=== PATIENT | male | born 1945 | race Caucasian/White ===

== ENCOUNTER 2017-12-05 08:09 | Day surgery (SDC) | payer MEDICARE ==
[2017-12-05] VITALS (20 sets, daily range): BP systolic 88–172; BP diastolic 57–97
[~2017-12-05] VITALS: Ht 170.2 cm; Wt 81.9 kg
[~2017-12-05 08:09] MED LIST: CYAN-19 PO; VITC500T PO
[2017-12-05] MEDS ORDERED: ONDA4TAB6 PO ×2 (08:33→08:38)
[2017-12-05] MEDS ORDERED: promethazine PO (08:33)
[2017-12-05] MEDS ORDERED: normal saline 1000ml 1,000 ML IV PRN (08:40)
[2017-12-05 09:10] LABS: BASOPHILS % (AUTO) 0.4 % (0-1); EOSINOPHILS # (AUTO) 0.1 X10'3 (0-0.9); EOSINOPHILS % (AUTO) 3.6 % (0-6); LYMPHOCYTES % (AUTO) 23.4 % (21-51); MEAN CORPUSCULAR HEMOGLOBIN 32.7 PG (27.0-31.0); MEAN CORPUSCULAR HGB CONC 34.7 % (33.0-36.5); MEAN CORPUSCULAR VOLUME 94.2 FL (78-98); MEAN PLATELET VOLUME 8.1 FL (7.4-10.4); MONOCYTES # (AUTO) 0.4 X10'3 (0-0.9); NEUTROPHILS # (AUTO) 2.6 X10'3 (1.8-7.7); NEUTROPHILS % (AUTO) 62.6 % (42-75); PRE OP HEMATOCRIT 47.3 % (42.0-52.0); PRE OP HEMOGLOBIN 16.4 g/dL (14.0-17.9); PRE OP PLATELET COUNT 206 X10'3 (140-440); RED BLOOD COUNT 5.02 X10'6 (4.70-6.10)
[2017-12-05 09:28] LABS: ALBUMIN 4.5 G/DL (3.4-5.0); ANION GAP 11 (8-16); BLOOD UREA NITROGEN 16 MG/DL (7-18); BUN/CREATININE RATIO 15.5 (5.4-32.0); CALCIUM 9.3 MG/DL (8.5-10.1); CHLORIDE 104 MMOL/L (99-107); CREATININE 1.03 MG/DL (0.60-1.10); GLUCOSE 92 MG/DL (70-104); POTASSIUM 3.8 MMOL/L (3.5-5.1); SODIUM 143 MMOL/L (135-145); TOTAL CARBON DIOXIDE 27.9 MMOL/L (24-32); eGFR 71 ML/MIN
[2017-12-05 09:31] LABS: PROTHROMBIN TIME 10.3 SECONDS (9.0-12.0)
[2017-12-05] MEDS ORDERED: fentaNYL/PF 50MCG/1 ML 2ML syringe IV PRN (10:15)
[2017-12-05] MEDS ORDERED: midazolam 2 mg/2 ml injection IV PRN (10:15)
[2017-12-05] MEDS ORDERED: midazolam 2 mg/2 ml injection ONE (10:24)
[2017-12-05] MEDS ORDERED: fentaNYL/PF 50MCG/1 ML 2ML syringe ONE (10:25)
[2017-12-05] MEDS ORDERED: LIDOcaine 1%/PF 5ML 10 MG/ML VIAL ONE (11:03)
[2017-12-05] MEDS ORDERED: ondansetron/PF 4mg/2ml inj ONE (11:27)
[2017-12-05] MEDS ORDERED: ondansetron/PF 4mg/2ml inj IV ONE (11:35)
[2017-12-05] MEDS ORDERED: HYDROcodone/acetaminophen 5mg/325mg tablet PO PRN ×2 (11:55)
[2017-12-05] MEDS ORDERED: morphine 4 MG/ML inj SYRINge IV PRN (11:55)
== END 2017-12-05 16:00 | disposition home or self-care (01) ==
LOC: SSTAY O 08:09
PROVIDERS: ATTEND Radiology Vascular & Interventional Radiology
DX: R91.1 Solitary pulmonary nodule (principal); I10 Essential (primary) hypertension; G51.0 Bell's palsy; N40.0 Benign prostatic hyperplasia without lower urinary tract symptoms; K21.9 Gastro-esophageal reflux disease without esophagitis; F32.9 Major depressive disorder, single episode, unspecified; Z92.3 Personal history of irradiation; Z87.891 Personal history of nicotine dependence; Z85.858 Personal history of malignant neoplasm of other endocrine glands; Z98.890 Other specified postprocedural states; Z79.899 Other long term (current) drug therapy
CPT/HCPCS: 32405; 36415; 71045; 77012; 80048; 85025; 85610; 99152; 99153; J2001; J2250; J2405; J3010; J7030; C1729; C1769